=== PATIENT | male | born 1960 | race Caucasian/White ===

== ENCOUNTER 2016-07-31 21:45 | Emergency (ER) | payer OTHER ==
[~2016-07-31] VITALS: Ht 182.9 cm; Wt 117.9 kg
[2016-07-31] MEDS ORDERED: PRAVACHOL20 MG PO (22:04)
[2016-07-31] MEDS ORDERED: FISH OIL 1,001000 M2 PO (22:04)
[2016-07-31] MEDS ORDERED: LISINOPRIL20 MG PO (22:04)
[2016-07-31] MEDS ORDERED: CARVEDILOL12.5 MG PO (22:05)
[2016-07-31] MEDS ORDERED: VITAMIN D2000 UNIT PO (22:05)
[2016-07-31 23:59] VITALS: BP 191/102
== END 2016-08-01 | disposition home or self-care (01) ==
LOC: ER 21:45
DX: S01.01XA Laceration without foreign body of scalp, initial encounter (principal); F10.129 Alcohol abuse with intoxication, unspecified; W01.198A Fall on same level from slipping, tripping and stumbling with subsequent striking against other object, initial encounter; Y93.89 Activity, other specified; Y92.89 Other specified places as the place of occurrence of the external cause; Y99.8 Other external cause status